=== PATIENT | female | born 1965 | race Caucasian/White ===

== ENCOUNTER 2023-12-13 08:57 | Day surgery (SDC) | payer BC, MEDICAID ==
[2023-12-13] MEDS ORDERED: Acetaminophen 500 MG Tab PO ONE (09:15)
[2023-12-13] MEDS: Lactated Ringers 1,000 ML IV SCH ×2 (09:25→09:28)
[2023-12-13] MEDS ORDERED: Bupivacaine 0.5% 50 ML MDV ONE (09:49)
[2023-12-13] MEDS ORDERED: Lidocaine 1% with EPINEPHrine 1:100,000 50 ML MDV ONE (09:50)
[2023-12-13] MEDS ORDERED: ceFAZolin 2 GM in Premix Bag 1 BAG IV ONE (11:00)
[2023-12-13] MEDS ORDERED: Propofol 200 MG/20 ML SDV ONE (13:21)
[2023-12-13] MEDS ORDERED: fentaNYL 100 MCG/2 ML SDV ONE (13:21)
[2023-12-13] MEDS ORDERED: Midazolam 1 MG/ML 2 ML SDV ONE (13:21)
== END 2023-12-13 15:35 | disposition home or self-care (01) ==
LOC: JP.SDS 08:57
PROVIDERS: ATTEND Student in an Organized Health Care Education/Training Program
DX: C25.2 Malignant neoplasm of tail of pancreas (principal)
CPT/HCPCS: 36561; 71045; 76000; A9270; C1788; J0690; J1642; J2250; J2704; J3010; J3490; J7120